=== PATIENT | female | born 1980 | race Caucasian/White ===

== ENCOUNTER 2017-02-07 22:25 | Emergency (ER) | payer OTHER ==
[~2017-02-07 22:25] MED LIST: ASPIRIN81 MG PO; PLAVIX 75 MG TA75 MG PO; SYNTHROID137 MCG PO; TOPROL XL50 MG PO; TRICOR145 MG PO
[2017-02-08 01:18] LABS: HEMOGLOBIN 11.3 gm/dl (12.3-15.3); RED BLOOD COUNT 3.81 M/UL (4.00-5.10); WHITE BLOOD COUNT 15.7 K/UL (4.5-11.0)
[2017-02-08 01:44] LABS: BUN/CREATININE RATIO 10 (0-10)
== END 2017-02-08 04:40 | disposition home or self-care (01) ==
LOC: ER1 22:25
PROVIDERS: Family Medicine
DX: B34.9 Viral infection, unspecified (principal); R60.0 Localized edema; D72.829 Elevated white blood cell count, unspecified; M25.531 Pain in right wrist; G89.29 Other chronic pain; I25.2 Old myocardial infarction; E03.9 Hypothyroidism, unspecified; Z79.82 Long term (current) use of aspirin; F17.200 Nicotine dependence, unspecified, uncomplicated; Z79.02 Long term (current) use of antithrombotics/antiplatelets; Z79.899 Other long term (current) drug therapy
CPT/HCPCS: 36415; 71020; 80053; 81001; 82550; 82553; 83874; 83880; 84484; 85025; 87040; 93005; 96361; 96374; 99284; J1885

== ENCOUNTER 2017-03-30 22:51 | Emergency (ER) | payer OTHER ==
[~2017-03-30 22:51] MED LIST changes: +SYNTHROID 150150 MCG PO; -SYNTHROID137 MCG PO; +TOPROL XL100 MG PO; -TOPROL XL50 MG PO
[2017-09-11] MEDS ORDERED: PROTONIX 40 MG40 M1 PO (20:01)
[2017-09-11] MEDS ORDERED: EFFEXOR XR 150150 MG PO (20:02)
[2017-09-11] MEDS ORDERED: NEURONTIN 400400 MG PO (20:02)
[2017-09-11] MEDS ORDERED: LIPITOR TAB 2020 MG PO (20:03)
[2017-09-11] MEDS ORDERED: FLEXERIL 10 MG10 MG PO (20:03)
[2017-09-11] MEDS ORDERED: BENTYL 10MG CAP10 MG PO (20:04)
[2017-09-11] MEDS ORDERED: FLAGYL500 MG PO (20:04)
== END 2017-03-31 03:48 | disposition home or self-care (01) ==
LOC: ER1 22:51
DX: S93.402A Sprain of unspecified ligament of left ankle, initial encounter (principal); S63.501A Unspecified sprain of right wrist, initial encounter; I10 Essential (primary) hypertension; I25.2 Old myocardial infarction; I25.10 Atherosclerotic heart disease of native coronary artery without angina pectoris; F17.210 Nicotine dependence, cigarettes, uncomplicated; Z95.5 Presence of coronary angioplasty implant and graft; W01.0XXA Fall on same level from slipping, tripping and stumbling without subsequent striking against object, initial encounter; Y93.01 Activity, walking, marching and hiking; Y92.008 Other place in unspecified non-institutional (private) residence as the place of occurrence of the external cause
CPT/HCPCS: 73110; 73610; 99284

== ENCOUNTER 2017-04-19 19:43 | Emergency (ER) | payer OTHER ==
[2017-09-11] MEDS ORDERED: PROTONIX 40 MG40 M1 PO (20:01)
[2017-09-11] MEDS ORDERED: NEURONTIN 400400 MG PO (20:02)
[2017-09-11] MEDS ORDERED: EFFEXOR XR 150150 MG PO (20:02)
[2017-09-11] MEDS ORDERED: FLEXERIL 10 MG10 MG PO (20:03)
[2017-09-11] MEDS ORDERED: LIPITOR TAB 2020 MG PO (20:03)
[2017-09-11] MEDS ORDERED: BENTYL 10MG CAP10 MG PO (20:04)
[2017-09-11] MEDS ORDERED: FLAGYL500 MG PO (20:04)
[2017-09-12] MEDS ORDERED: ZOFRAN4 MG PO (14:56)
[2017-09-12] MEDS ORDERED: IMDUR ER TAB 3030 MG PO (15:07)
== END 2017-04-19 20:40 | disposition home or self-care (01) ==
LOC: ER1 19:43
DX: S61.012A Laceration without foreign body of left thumb without damage to nail, initial encounter (principal); I10 Essential (primary) hypertension; I25.10 Atherosclerotic heart disease of native coronary artery without angina pectoris; F17.210 Nicotine dependence, cigarettes, uncomplicated; W26.8XXA Contact with other sharp object(s), not elsewhere classified, initial encounter; Y92.009 Unspecified place in unspecified non-institutional (private) residence as the place of occurrence of the external cause; Z79.02 Long term (current) use of antithrombotics/antiplatelets; Z79.82 Long term (current) use of aspirin
CPT/HCPCS: 12001; 99283